=== PATIENT | female | born 1955 | race Caucasian/White ===

== ENCOUNTER 2018-05-14 15:06 | Emergency (ER) | payer OTHER ==
--- NOTE | 2018-05-14 16:01 | EDM.PDOC ---
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 Complains of bilateral knee pain. Able to walk, but painful to do so. Has been out of Lisinopril 20mg x 4 months. 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 ED EXAM, GENERAL - Physical Exam Exam: See Below Exam Limited By: No Limitations General Appearance: Alert, WD/WN, No Apparent Distress Ears: Normal External Exam Nose: Normal Inspection Throat/Mouth: No Airway Compromise Head: Atraumatic, Normocephalic Neck: Full Range of Motion Respiratory/Chest: No Respiratory Distress Extremities: Other (mild tenderness to bilateral anterior knees) Neurological: Alert, Oriented, Normal Cognition, No Motor/Sensory Deficits Course - Vital Signs Last Recorded V/S: Last Vital Signs Temp 36.2 C 05/14/18 15:20 Pulse 94 05/14/18 15:20 Resp 18 05/14/18 15:20 BP 206/120 H 05/14/18 15:20 Pulse Ox 98 05/14/18 15:20 BP rechecked at 192/102 - Orders/Labs/Meds Orders: Active Orders 24 hr Category Date Time Status Knee 3V Bi [CR] Stat Exams 05/14/18 15:57 Taken Lisinopril [Prinivil] Med 05/14/18 16:54 Once 20 mg PO ONETIME ONE - Radiology Interpretation Free Text/Narrative:: Bilateral Knee XR: no acute abnormalities. - Re-Assessments/Exams Free Text/Narrative Re-Assessment/Exam: 05/14/18 16:59 BP rechecked at 192/102. Has been out of Lisinopril 20mg x 4 months, will rx 30 day supply. She is advised to follow up with her doctor in 3-5 days re HTN. Departure - Departure Time of Disposition: 17:00 Disposition: Home, Self-Care 01 Condition: Good Clinical Impression: Knee contusion Qualifiers: Encounter type: initial encounter Laterality: unspecified laterality Qualified Code(s): S80.00XA - Contusion of unspecified knee, initial encounter Hypertension Qualifiers: Hypertension type: essential hypertension Qualified Code(s): I10 - Essential ( primary) hypertension - Discharge Information *PRESCRIPTION DRUG MONITORING PROGRAM REVIEWED*: Not Applicable *COPY OF PRESCRIPTION DRUG MONITORING REPORT IN PATIENT IVONE: Not Applicable Prescriptions: Lisinopril 20 mg PO DAILY #30 tablet Instructions: Hypertension, [id number], Contusion Referrals: Niranjan Wang MD [Primary Care Provider] - Forms: ED Department Discharge Additional Instructions: Follow up with your primary physician in 3-5 days. - My Orders Last 24 Hours: My Active Orders 05/14/18 15:57 Knee 3V Bi [CR] Stat 05/14/18 16:54 Lisinopril [Prinivil] 20 mg PO ONETIME ONE - Assessment/Plan Last 24 Hours: My Active Orders 05/14/18 15:57 Knee 3V Bi [CR] Stat 05/14/18 16:54 Lisinopril [Prinivil] 20 mg PO ONETIME ONE
[2018-05-14] MEDS ORDERED: Lisinopril 10 MG Tab PO ONE (16:54)
[2018-05-14 17:42] VITALS: BP 192/102
--- NOTE | 2018-05-15 09:44 | CR ---
INDICATION: Injury, fell landing on both knees. BILATERAL KNEES: Six images of the knees were obtained bilaterally, including AP, lateral, and patellar sunrise, and revealed small spurs off the anterior cranial aspects of the patellae. Only very minimal hypertrophic degenerative changes are noted on the left with mild hypertrophic changes medially off the femur and tibia on the right. Very minimal hypertrophic change is noted at the medial intercondylar spines. Femorotibial and patellofemoral joint spaces appear to be fairly well- maintained. A fracture, dislocation, or other acute bone or joint abnormality was not identified. IMPRESSION: 1. No acute fracture or dislocation. 2. Osteoarthritis. Report was given by phone to Dr. Escobar at approximately 1655 hours on 2017. PONCHOD
== END 2018-05-14 17:20 | disposition home or self-care (01) ==
LOC: FB.ED 15:06
DX: S80.02XA Contusion of left knee, initial encounter (principal); S80.01XA Contusion of right knee, initial encounter; I10 Essential (primary) hypertension; W01.198A Fall on same level from slipping, tripping and stumbling with subsequent striking against other object, initial encounter; Y99.0 Civilian activity done for income or pay; Z79.899 Other long term (current) drug therapy
CPT/HCPCS: 73562; 99283; A9270

== ENCOUNTER 2019-01-07 15:32 | Observation (INO) | payer OTHER ==
[2019-01-07] MEDS ORDERED: Acetaminophen 325 MG Tab PO PRN (16:10)
[2019-01-07] MEDS: Sodium Chloride 0.9% 10 ML Syringe FLUSH PRN (17:00)
[2019-01-07] MEDS: Sodium Chloride 0.9% 1,000 ML IV SCH ×2 (17:10→23:55)
[2019-01-07] MEDS ORDERED: Enoxaparin 40 MG/0.4 ML Syringe SUBCUT SCH (18:00)
[2019-01-08] MEDS: Sodium Chloride 0.9% 1,000 ML IV SCH (06:12)
[2019-01-08] MEDS: Sodium Chloride 0.9% 10 ML Syringe FLUSH PRN (07:15)
--- NOTE | 2019-01-08 08:19 | DISCH ---
DISCHARGE DATE: 01/08/2019 HOSPITAL COURSE: Bailey is a 63-year-old woman from [place], [place], with a history of hypertension. She presented to the clinic yesterday with subxiphoid discomfort, dyspnea on exertion, and generally feeling unwell. Evaluation in the clinic revealed normal troponin, normal ECG, but worrisome symptoms. In addition to that, she had an elevated creatinine to 1.5. The patient was admitted for observation. IV normal saline was given. Repeat laboratory the next morning showed normal CBC. Creatinine down to 1.2, BUN 31, and uric acid 8.0. Troponin less than 0.017. She is discharged to home in good condition. She is asked to see Dr. Wang in followup in 7 to 10 days to recheck her kidney panel and uric acid. D-dimer done at the time of admission was also normal. Because of her significant dyspnea on exertion, future cardiac stress test is advised. /[id number] BRANDON/WERNER
--- NOTE | 2019-01-08 09:57 | HP ---
ADMISSION DATE: 01/07/2019 CHIEF COMPLAINT: Shortness of breath and epigastric discomfort. HISTORY OF PRESENT ILLNESS: Bailey is a 63-year-old woman from [place], [place], with a history of chronic essential hypertension and hyperlipidemia. She went into the clinic and saw Dr. Enciso today because of epigastric discomfort. 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 She says this was quite sharp. They told her to go home and go into the clinic. She was still having discomfort at the time. She also related that she had been more short of breath with activity for the prior 2 days. She has never had either of these symptoms before. She has no history of lung problems. EKG, troponin, and chemistry panel done in the clinic were negative for acute cardiac events, but review of a lipid panel back in May showed her cholesterol to be 297 with an LDL of 182. EKG in the clinic was normal, as was chest x-ray. She is a smoker. PAST MEDICAL HISTORY: Chronic essential hypertension treated for years. Then she went off medications but had to go back on in April of this year for elevated blood pressure. She has also had hyperlipidemia. She is status post vaginal hysterectomy for uterine cancer in 1999. She is 2, para 2, with C- sections first for breech position. She has never had transfusions, jaundice, or hepatitis. MEDICATIONS: 1. Hydrochlorothiazide 25 mg daily. 2. Crestor 5 mg daily. 3. Lisinopril 10 mg daily. ALLERGIES: None, but she states she has been coughing since starting lisinopril. FAMILY HISTORY: The patient's father is age 84. He had a 4-vessel coronary artery bypass graft at age 57. He has had an DE. He has hypertension and diabetes. Mother is also age 84. She has a history of stroke in her 70s. She has had heart disease, hypertension, and diabetes as well. One sister has had breast cancer and a brother has GERD with reflux with hiatal hernia. SOCIAL HISTORY: The patient has been since 1981. She has 2 children, ages 41 and 39, both live in [place], [place]. The patient has been a cook at [employer] for the past 9 years. Prior to that, she worked at [employer] for 12 years. She lives by herself in [place]. REVIEW OF SYSTEMS: GENERAL: No seizure, syncope, or recent significant weight change. SKIN: Negative for rash. HEENT: No recent changes in hearing or vision. No sore throat or URI. She does have a cough as mentioned. CARDIAC/CHEST: No upper chest pain. She has not recognized any palpitations. GASTROINTESTINAL: No nausea, vomiting, diarrhea, constipation, hematochezia, or melena. No lower abdominal pain. MUSCULOSKELETAL/PSYCH: No swelling or joint inflammation, skin rash, mood instability, or temperature intolerance. PHYSICAL EXAMINATION: GENERAL: She is alert, comfortable, and a good historian. VITAL SIGNS: Blood pressure 138/68, pulse is 84 and regular, respirations 18, O2 saturation 100% on room air, temperature 97.7, weight 155 pounds 3 ounces. SKIN: Anicteric, warm, and dry, without rash. HEENT: Shows clear TMs. Pupils are equal and reactive. Oropharynx clear. NECK: Supple. Thyroid is normal. LUNGS: Clear to the bases with good air movement. BACK: Straight, nontender. HEART: Regular, without murmur, rub, or gallop. ABDOMEN: Obese, soft. She has slight tenderness to deep palpation in the subxiphoid epigastric areas, she says, which reproduces her discomfort. No lower abdominal pain. EXTREMITIES: Warm, well perfused. Excellent pulses. No edema. NEUROLOGIC: Reveals normal mental status. Normal motor exam. LABORATORY DATA: Done in the office today showed a troponin of 0, glucose 90, sodium 139, potassium 4.2, BUN 38, creatinine 1.58. Chest x-ray showed emphysema and clear lungs. EKG showed no ischemic change. ASSESSMENT: 1. Recent increase in dyspnea on exertion with subxiphoid discomfort, suspicious for cardiac symptoms. 2. Chronic obstructive pulmonary disease with smoker. 3. Chronic kidney disease stage 3 with likely superimposed dehydration. 4. Hyperlipidemia. 5. Chronic essential hypertension. PLAN: She is admitted for observation. We will keep her on telemetry. We will give her IV fluids overnight because of her elevated BUN and creatinine. We will recheck labs in the a.m. and discharge, if stable. /[id number] RO/MODL
[2019-01-08 16:52] VITALS: BP 128/73
== END 2019-01-08 09:00 | disposition home or self-care (01) ==
LOC: FB.MS 15:32 → INTOOBSV 15:32
PROVIDERS: ADMIT Family Medicine; ATTEND Family Medicine
DX: R06.00 Dyspnea, unspecified (principal); R10.13 Epigastric pain; I10 Essential (primary) hypertension; E78.5 Hyperlipidemia, unspecified; Z79.899 Other long term (current) drug therapy
CPT/HCPCS: 36415; 80048; 81001; 83735; 84484; 84550; 85025; 85379; 93005; 96360; 96361; 96372; G0378; J1650; J7030